=== PATIENT | female | born 1975 | race Hispanic/Latino ===

== ENCOUNTER 2022-05-13 16:52 | Emergency (ER) | payer SELFPAY | END 2022-05-13 18:35 | disposition home or self-care (01) | LOC: CSHERS 16:52 | DX: E11.621 Type 2 diabetes mellitus with foot ulcer (principal); L97.429 Non-pressure chronic ulcer of left heel and midfoot with unspecified severity ==

== ENCOUNTER 2022-11-09 12:35 | Emergency (ER) | payer OTHER, SELFPAY | END 2022-11-09 14:30 | disposition home or self-care (01) | LOC: CSHERS 12:35 | DX: L72.0 Epidermal cyst (principal); E11.9 Type 2 diabetes mellitus without complications; I10 Essential (primary) hypertension; E78.00 Pure hypercholesterolemia, unspecified; Z79.4 Long term (current) use of insulin | CPT/HCPCS: 99282 ==

== ENCOUNTER 2024-08-12 14:01 | Emergency (ER) | payer OTHER, SELFPAY ==
[2024-08-12 15:37] LABS: ALT (SGPT) 25 U/L (8-55); AST (SGOT) 19 U/L (5-34); Albumin 2.3 g/dL (3.5-5.0); Alkaline Phosphatase 210 U/L (40-110); Anion Gap 16 mmol/L (10-20); BUN (Urea Nitrogen) 18 mg/dL (9.8-20.1); Bilirubin, Total 0.3 mg/dL (0.2-1.2); Calc. Creatinine Clearance 0 mL/min (70-130); Calcium 8.6 mg/dL (7.8-10.44); Carbon Dioxide 22 mmol/L (22-29); Chloride 97 mmol/L (98-107); Estimated GFR 53; Globulin 4.6 g/dL (2.4-3.5); Lipase 20 U/L (8-78); Potassium 3.3 mmol/L (3.5-5.1); Protein, Total 6.9 g/dL (6.0-8.3); Sodium 132 mmol/L (136-145)
[2024-08-12 15:43] LABS: Glucose 413 mg/dL (70-105)
[2024-08-12 15:46] LABS: BHCG - Serum Negative (NEGATIVE); Pregs Control Background? CLEAR/WHITE (CLR/WHITE); Pregs Control Bar Appear? YES (CONTROL BAR)
[2024-08-12 15:47] LABS: Hematocrit 32.1 % (34.9-44.5); Hemoglobin 10.7 g/dL (12.0-15.5); Mean Corpuscular HGB CONC 33.3 g/dL (32.0-36.0); Mean Corpuscular Hemoglobin 27.7 pg (27.0-33.0); Mean Corpuscular Volume 83.2 fL (81.6-98.3); Mean Platelet Volume 11.2 fL (7.4-10.4); Platelet Count 235 10x3/uL (150-450); Red Blood Cell (RBC) Count 3.86 10x6/uL (3.90-5.03); White Blood Cell (WBC) Count 10.5 10x3/uL (3.5-10.5)
[2024-08-12 15:51] LABS: Magnesium 1.8 mg/dL (1.6-2.6)
[2024-08-12 15:53] LABS: MDiff Complete? YES
[2024-08-12 16:33] LABS: Actual Bicarbonate (HCO3v) 23.8 mEq/L (22-28); Analyzer IN Cardio CS ER; Base Excess 1.1 mEq/L (-2 - +2); Calcium, Ionized (venous) 1.04 mmol/L (1.16-1.32); Chloride (VBG) 97 mmol/L (98-106); Hematocrit-VBG 33 % (36.0-47.0); Hemoglobin (Hb) 11.1 g/dL (11.7-16.0); Potassium (VBG) 3.08 mmol/L (3.70-5.30); Puncture Site Other Site; RapidComm Collect By LAB; Sodium 131 mmol/L (133-146); pH (venous) 7.498 (7.32-7.43)
[2024-08-12] MEDS ORDERED: Potassium Chloride 20 MEQ TAB ONE (16:36)
[2024-08-12 17:08] LABS: Band 14 % (5-11); Lymphocytes 1 % (21-51); Monocytes 2 % (0-10); Neutrophil 83 % (42-75)
[2024-08-12 17:32] LABS: Platelet Adequacy Comment Appears Adequate; RBC Morph Comment Within Normal Limits
[2024-08-12 17:57] LABS: Bilirubin Neg (Negative); Blood, Urine 50 (Negative); Glucose, Urine (Dipstick) >=1000 mg/dL (Negative); Ketone, Urine 5 mg/dL (Negative); Leukocyte 500 (Negative); Nitrite Negative (Negative); Protein, Urine (Dipstick) 500 mg/dl (Neg-Trace); Specific Gravity, Urine 1.015 (1.005-1.030); Urobilinogen Normal mg/dL (Less than 2)
[2024-08-12 17:58] LABS: Clarity Hazy (Clear)
[2024-08-12 18:51] LABS: CAUTI Indications for Culture Alt mental st,lethar
[2024-08-12 18:52] LABS: WBC/HPF 21-50 HPF (0-3)
[2024-08-12 18:53] LABS: Bacteria/HPF 4+ HPF (None Seen); Mucous/LPF 1+ LPF (<2+)
[2024-08-12 18:54] LABS: Yeast-Budding Rare HPF (None Seen)
[2024-08-12 18:56] LABS: Urine Culture Reflex Yes Yes
[2024-08-12] MEDS ORDERED: cefTRIAXone (ROCEPHIN) 1 GM VIAL ONE (19:26)
== END 2024-08-12 20:21 | disposition home or self-care (01) ==
LOC: CSHERS 14:01
DX: N39.0 Urinary tract infection, site not specified (principal); R11.2 Nausea with vomiting, unspecified; E11.65 Type 2 diabetes mellitus with hyperglycemia; I10 Essential (primary) hypertension
CPT/HCPCS: 36415; 36416; 80053; 81001; 82010; 82805; 83690; 83735; 84703; 85025; 87077; 87086; 87186; 87428; 96374; J0696

== ENCOUNTER 2025-07-10 14:56 | Emergency (ER) | payer SELFPAY ==
[2025-07-10 15:51] LABS: #Basophils 0.03 10x3/uL (0.0-0.2); #Eosinophils 0.15 10x3/uL (0.0-0.5); #Monocytes 0.36 10x3/uL (0.0-1.1); #Neutrophils 4.02 10x3/uL (1.5-8.4); %Basophils 0.5 % (0.0-2.0); %Eosinophils 2.6 % (0.0-6.0); %Lymphocytes 21.5 % (18.0-47.0); %Monocytes 6.2 % (0.0-10.0); %Neutrophils 69.0 % (40.0-75.0); Hematocrit 29.4 % (34.9-44.5); Hemoglobin 10.1 g/dL (12.0-15.5); Mean Corpuscular Hemoglobin 28.5 pg (27.0-33.0); Mean Corpuscular Volume 83.1 fL (81.6-98.3); Platelet Count 320 10x3/uL (150-450); Red Blood Cell (RBC) Count 3.54 10x6/uL (3.90-5.03); White Blood Cell (WBC) Count 5.82 10x3/uL (3.5-10.5)
[2025-07-10 16:08] LABS: ALT (SGPT) Less than 7 U/L (Less than 34); AST (SGOT) 12 U/L (11-34); Albumin 2.2 g/dL (3.1-4.5); Alkaline Phosphatase 80 U/L (40-110); Anion Gap 12 mmol/L (10-20); BUN (Urea Nitrogen) 9 mg/dL (9.8-20.1); Bilirubin, Total 0.2 mg/dL (0.3-1.2); Calc. Creatinine Clearance 0 mL/min (70-130); Calcium 8.2 mg/dL (7.8-10.44); Carbon Dioxide 26 mmol/L (22-29); Chloride 100 mmol/L (98-107); Globulin 4.7 g/dL (2.4-3.5); Magnesium 1.9 mg/dL (1.6-2.6); Potassium 2.7 mmol/L (3.5-5.1); Sodium 135 mmol/L (136-145)
[2025-07-10 16:14] LABS: Troponin I Less than 0.010 ng/mL (< 0.028)
[2025-07-10 16:15] LABS: Glucose 409 mg/dL (70-105)
[2025-07-10] MEDS ORDERED: Magnesium 2 GM/50 ML BAG (IN WATER) ONE (16:37)
[2025-07-10 17:56] LABS: Glucose, Urine (Dipstick) >=1000 mg/dL (Negative); Leukocyte 500 (Negative); Protein, Urine (Dipstick) 500 mg/dl (Neg-Trace); Specific Gravity, Urine 1.010 (1.005-1.030)
[2025-07-10 18:18] LABS: Bacteria/HPF 4+ HPF (None Seen); CAUTI Indications for Culture Pelvic or flank pain; RBC/HPF 0-3 HPF (0-3); Urine Culture Reflex Yes Yes; WBC/HPF Greater Than 50 HPF (0-3)
== END 2025-07-10 18:35 | disposition home or self-care (01) ==
LOC: CSHERS 14:56
DX: R60.0 Localized edema (principal); E11.65 Type 2 diabetes mellitus with hyperglycemia; E87.6 Hypokalemia; N39.0 Urinary tract infection, site not specified; I10 Essential (primary) hypertension
CPT/HCPCS: 36415; 36416; 71045; 80053; 81001; 83735; 83880; 84443; 84484; 85025; 87077; 87086; 87186; 93005; 96374; J1815; J3475